=== PATIENT | male | born 1950 | race Caucasian/White ===

== ENCOUNTER → 2017-11-08 | Outpatient (CLI) | payer MEDICARE, OTHER ==
[~2017-11-08] MED LIST: ALB6.8IN INH; AMLO10TA PO; AMLO5TAB2 PO; ASPI-266 PO; CLOP75TA28 PO; HCTZ12.5T PO; ISOS30TA3 PO; LISI10TA2 PO; METO100T2 PO; NITR0.4T42 SL; OMEP20TA2 PO; ORETIC PO; SIMV40TA4 PO
--- NOTE | 2017-11-08 09:48 | Diagnostic Imaging Report ---
PATIENT HISTORY: CHRONIC KIDNEY DISEASE. TECHNIQUE: Grayscale and Doppler ultrasound performed of the bilateral kidneys and renal arteries. COMPARISON: None. FINDINGS: The right kidney measures 8.9 cm in length. There is mild renal cortical thinning. There is a focal prominence of hypoechoic cortex at the anterior right kidney measuring 3.7 x 2.2 x 2.4 cm. No hydronephrosis is seen. The left kidney measures 10.3 cm in length, with no hydronephrosis as well. There is a small 9 mm cyst at the inferior left kidney. No free fluid is seen. The right main renal artery is obscured by bowel. The resistive indices of the right kidney range from 0.64 to 0.67. The mid abdominal aorta is mildly large, measuring 4.1 x 4.1 cm. Velocity in the aorta is 76.6 cm/s. The left main renal artery measures 109 cm/s proximally, 148 cm/s mid-, and 51 cm/s distally. The renal artery aortic ratio is 1.4, 1.9, and 0.7 respectively. Resistive indices in the left kidney arcuates range from 0.61 to 0.67. IMPRESSION: 1. The right main renal artery is not seen. No significant stenosis is seen in the left main renal artery. 2. Focal prominence of the hypoechoic cortex at the anterior right kidney. This may represent a normal lobulation, however a focal mass is not excluded. 3. Aneurysmal dilatation of the mid abdominal aorta, measuring 4.1 cm. Dictated by: Dictated on workstation # [id number]
--- NOTE | 2017-11-08 11:26 | Diagnostic Imaging Report ---
INDICATION: Renal failure EXAM: Bladder ultrasound FINDINGS: Prevoid bladder urinary bladder volume was 110 mL. The post void urinary bladder volume was 6 mL. Urinary bladder wall appears normal. IMPRESSION: Unremarkable urinary bladder ultrasound. Dictated by: Dictated on workstation # [id number]
== END ==
LOC: RAD 07:52
PROVIDERS: ATTEND Internal Medicine Nephrology
DX: I71.4 Abdominal aortic aneurysm, without rupture (principal); N18.3 Chronic kidney disease, stage 3 (moderate)
CPT/HCPCS: 76857; 93975

== ENCOUNTER → 2019-01-14 | Outpatient (CLI) | payer MEDICARE, OTHER ==
--- NOTE | 2019-01-14 14:55 | Diagnostic Imaging Report ---
EXAMINATION: Aortic sonogram. HISTORY: Abdominal aortic aneurysm. FINDINGS: No comparison available. The proximal aorta is obscured by bowel gas. The mid aorta is normal in caliber measuring 2.1 x 2.5 cm. Distally, there is an abdominal aortic aneurysm which measures at least 4.8 x 4.9 cm. There is a moderate amount of mural thrombus. The iliac arteries are not well seen due to bowel gas. IMPRESSION: 1. Large abdominal aortic aneurysm measuring up to 4.9 cm. Dictated by: Dictated on workstation # [id number]
== END ==
LOC: RAD 07:35
PROVIDERS: ATTEND Internal Medicine Cardiovascular Disease
DX: I71.4 Abdominal aortic aneurysm, without rupture (principal)
CPT/HCPCS: 76775

== ENCOUNTER 2023-03-11 10:31 | Emergency (ER) | payer MEDICARE, OTHER ==
[~2023-03-11] VITALS: Ht 175.3 cm; Wt 90.7 kg
[2023-03-11 11:17] LABS: BASOPHILS # (AUTO) 0.1 10^3/uL (0.0-0.1); BASOPHILS % (AUTO) 1 % (0-10); EOSINOPHILS # (AUTO) 0.1 10^3/uL (0.0-0.3); EOSINOPHILS % (AUTO) 1 % (0-10); HEMATOCRIT 41 % (40-54); HEMOGLOBIN 13.1 g/dL (13.3-17.7); LYMPHOCYTES # (AUTO) 1.5 10^3/uL (1.0-4.0); LYMPHOCYTES % (AUTO) 11 % (12-44); MEAN CORPUSCULAR HEMOGLOBIN 30 pg (25-34); MEAN CORPUSCULAR HGB CONC 32 g/dL (32-36); MEAN CORPUSCULAR VOLUME 93 fL (80-99); MEAN PLATELET VOLUME 9.8 fL (9.0-12.2); MONOCYTES # (AUTO) 0.6 10^3/uL (0.0-1.0); MONOCYTES % (AUTO) 5 % (0-12); NEUTROPHILS # (AUTO) 10.8 10^3/uL (1.8-7.8); NEUTROPHILS % (AUTO) 82 % (42-75); PLATELET COUNT 400 10^3/uL (130-400); WHITE BLOOD COUNT 13.2 10^3/uL (4.3-11.0)
[2023-03-11 11:29] LABS: ALBUMIN 4.1 GM/DL (3.2-4.5); CHLORIDE 106 MMOL/L (98-107); POTASSIUM 5.3 MMOL/L (3.6-5.0); SODIUM 137 MMOL/L (135-145)
--- NOTE | 2023-03-11 11:30 | ED Abdominal Pain ---
General Chief Complaint: Chest Pain Stated Complaint: ABD PAIN/DIZZY Nursing Triage Note: PT TO RM 7 W C/O EPIGASTRIC PAIN SX 0000, PAIN IMPROVED AROUND [id number] THIS AM, HOWEVER, STILL PRESENT AT THIS TIME. PT A&OX4. Source of Information: Patient Exam Limitations: No Limitations History of Present Illness Date Seen by Provider: Mar 11, 2023 Time Seen by Provider: 11:00 Initial Comments 72-year-old male presents to the ER with complaint of mid upper abdominal pain starting at midnight last night. He reports that the pain was constant for 6 to 7 hours, it let up at 6 AM, but has been fluctuating intermittently since then. He reports the pain is minimal at this time. He denies radiation of the pain. He reports occasional dizziness, describes the dizziness as nausea. Denies lightheadedness or vertigo. Denies sweating with the pain. He denies fever, chest pain, shortness of air, vomiting, diarrhea, dysuria. Last bowel movement was this morning. He has had 2 previous MIs with stent placement. Patient was found to be hypertensive, reports that he took his medications this morning. He denies any previous abdominal surgeries. Allergies and Home Medications Allergies Coded Allergies: No Known Drug Allergies (Unverified , 04/21/14) Patient Home Medication List Home Medication List Reviewed: Yes Albuterol (Rx-Proventil) 17 Gm Aers, 1-2 PUFF INH PRN PRN for SHORTNESS OF BREATH, (Reported) Entered as Reported by: KIMBERLEY EUCEDA on 05/04/14 1018 Amlodipine Besylate (Amlodipine Besylate) 5 Mg Tablet, 10 MG PO DAILY, (Reported) Entered as Reported by: MARY CROWE on 05/05/14 1205 Aspirin (Aspirin Ec Low Dose) 81 Mg Tablet.dr, 81 MG PO DAILY, (Reported) Entered as Reported by: KIMBERLEY EUCEDA on 05/04/14 1018 Clopidogrel Bisulfate (Clopidogrel) 75 Mg Tablet, 75 MG PO DAILY, (Reported) Entered as Reported by: KIMBERLEY EUCEDA on 05/04/14 1018 Hydrochlorothiazide (Hctz) 12.5 Mg Cap, 12.5 MG PO DAILY, (Reported) Entered as Reported by: MARY CROWE on 05/05/14 1205 Isosorbide Mononitrate (Isosorbide Mononitrate 30 Mg) 30 Mg Tab.sr.24h, 30 MG PO DAILY, (Reported) Entered as Reported by: KIMBERLEY EUCEDA on 05/04/14 1018 Lisinopril (Lisinopril) 10 Mg Tablet, 10 MG PO DAILY, (Reported) Entered as Reported by: KIMBERLEY EUCEDA on 05/04/14 1018 Metoprolol Tartrate (Metoprolol Tartrate) 100 Mg Tablet, 100 MG PO BID, (Reported) Entered as Reported by: KIMBERLEY EUCEDA on 05/04/14 1018 Nitroglycerin (Nitroglycerin) 0.4 Mg Tab.subl, 0.4 MG SL PRN PRN for CHEST PAIN, (Reported) Entered as Reported by: KIMBERLEY EUCEDA on 05/04/14 1018 Omeprazole (Omeprazole) 20 Mg Tablet.dr, 20 MG PO BID, (Reported) Entered as Reported by: KIMBERLEY EUCEDA on 05/04/14 1018 Simvastatin (Simvastatin) 40 Mg Tablet, 40 MG PO HS, (Reported) Entered as Reported by: KIMBERLEY EUCEDA on 05/04/14 1018 Review of Systems Review of Systems Constitutional: see HPI Past Wbcnajy-Hhvazi-Civvue Hx Patient Social History Tobacco Use?: Yes Tobacco type used: Cigarettes Smoking Status: Current Everyday Smoker Use of E-Cig and/or Vaping dev: No Substance use?: No Alcohol Use?: No Immunizations Up To Date Tetanus Booster (TDap): Less than 5yrs Past Medical History Surgery/Hospitalization HX: STROKE, [place] x2, CARDIAC STENTS X5 Coronary Stent Stroke Reproductive Disorders: No Adverse Reaction/Blood Tranf: No Family Medical History Cardiovascular disease 19 FATHER 19 MOTHER Coronary thrombosis 19 FATHER 19 MOTHER Physical Exam Vital Signs Vital Signs - First Documented 03/11/23 11:00 Temp 36.1 Pulse 88 Resp 20 B/P (MAP) 195/118 (143) Pulse Ox 98 O2 Delivery Room Air Capillary Refill : Less Than 3 Seconds Height/Weight/BMI Height: 5'9.00" Weight: 200lbs. oz. 90.393415wl; 29.00 BMI Method: General Appearance: WD/WN, no apparent distress HEENT: PERRL/EOMI, normal ENT inspection, TMs normal Neck: full range of motion, supple, normal inspection Respiratory: lungs clear, normal breath sounds, no respiratory distress, no accessory muscle use Cardiovascular: regular rate, rhythm Gastrointestinal: normal bowel sounds, soft, guarding (Right lower and left lower quadrant), tenderness (Mid epigastric, right lower, left lower quadrant) Extremities: normal range of motion, non-tender, normal inspection, no pedal edema, no calf tenderness, other (Pulses equal upper and lower extremities) Neurologic/Psychiatric: alert, normal mood/affect Skin: normal color, warm/dry Progress/Results/Core Measures Results/Orders Lab Results Laboratory Tests Test 03/11/23 11:06 03/11/23 13:17 Range/Units White Blood Count 13.2 H 4.3-11.0 10^3/uL Red Blood Count 4.43 4.30-5.52 10^6/uL Hemoglobin 13.1 L 13.3-17.7 g/dL Hematocrit 41 40-54 % Mean Corpuscular Volume 93 80-99 fL Mean Corpuscular Hemoglobin 30 25-34 pg Mean Corpuscular Hemoglobin Concent 32 32-36 g/dL Red Cell Distribution Width 16.3 H 10.0-14.5 % Platelet Count 400 130-400 10^3/uL Mean Platelet Volume 9.8 9.0-12.2 fL Immature Granulocyte % (Auto) 1 % Neutrophils (%) (Auto) 82 H 42-75 % Lymphocytes (%) (Auto) 11 L 12-44 % Monocytes (%) (Auto) 5 0-12 % Eosinophils (%) (Auto) 1 0-10 % Basophils (%) (Auto) 1 0-10 % Neutrophils # (Auto) 10.8 H 1.8-7.8 10^3/uL Lymphocytes # (Auto) 1.5 1.0-4.0 10^3/uL Monocytes # (Auto) 0.6 0.0-1.0 10^3/uL Eosinophils # (Auto) 0.1 0.0-0.3 10^3/uL Basophils # (Auto) 0.1 0.0-0.1 10^3/uL Immature Granulocyte # (Auto) 0.1 0.0-0.1 10^3/uL Prothrombin Time 13.5 12.2-14.7 SEC INR Comment 1.0 0.8-1.4 Activated Partial Thromboplast Time 37 H 24-35 SEC Sodium Level 137 135-145 MMOL/L Potassium Level 5.3 H 3.6-5.0 MMOL/L Chloride Level 106 98-107 MMOL/L Carbon Dioxide Level 20 L 21-32 MMOL/L Anion Gap 11 5-14 MMOL/L Blood Urea Nitrogen 33 H 7-18 MG/DL Creatinine 2.54 H 0.60-1.30 MG/DL Estimat Glomerular Filtration Rate 26 BUN/Creatinine Ratio 13 Glucose Level 146 H 70-105 MG/DL Calcium Level 10.5 H 8.5-10.1 MG/DL Corrected Calcium 10.4 H 8.5-10.1 MG/DL Magnesium Level 1.9 1.6-2.4 MG/DL Total Bilirubin 0.4 0.1-1.0 MG/DL Aspartate Amino Transf (AST/SGOT) 12 5-34 U/L Alanine Aminotransferase (ALT/SGPT) 14 0-55 U/L Alkaline Phosphatase 93 40-136 U/L Troponin I < 0.028 <0.028 NG/ML Total Protein 7.6 6.4-8.2 GM/DL Albumin 4.1 3.2-4.5 GM/DL Lipase 62 8-78 U/L Urine Color YELLOW Urine Clarity CLEAR Urine pH 6.0 5-9 Urine Specific [place] 1.015 L 1.016-1.022 Urine Protein 2+ H NEGATIVE Urine Glucose (UA) NEGATIVE NEGATIVE Urine Ketones NEGATIVE NEGATIVE Urine Nitrite NEGATIVE NEGATIVE Urine Bilirubin NEGATIVE NEGATIVE Urine Urobilinogen 0.2 < = 1.0 MG/DL Urine Leukocyte Esterase NEGATIVE NEGATIVE Urine RBC (Auto) NEGATIVE NEGATIVE Urine RBC 0-2 /HPF Urine WBC 0-2 /HPF Urine Squamous Epithelial Cells 2-5 /HPF Urine Crystals NONE /LPF Urine Bacteria NEGATIVE /HPF Urine Casts NONE /LPF Urine Mucus NEGATIVE /LPF Urine Culture Indicated NO My Orders Orders - MINAL DOSS [employer] Ekg Tracing (03/11/23 11:04) Cbc And Automated Diff (03/11/23 11:04) Magnesium (03/11/23 11:04) Chest 1 View, Ap/Pa Only (03/11/23 11:04) Comprehensive Metabolic Panel (03/11/23 11:04) Protime With Inr (03/11/23 11:04) Partial Thromboplastin Time (03/11/23 11:04) Monitor-Rhythm Ecg Trace Only (03/11/23 11:04) Ed Iv/Invasive Line Start (03/11/23 11:04) Lipase (03/11/23 11:04) Troponin I [place] (03/11/23 11:04) Lidocaine 2% Viscous 15 Ml (Xylocaine Vi (03/11/23 11:45) Antacid Suspension (Antacid Suspension (03/11/23 11:45) Ondansetron Injection (Ondansetron Inj (03/11/23 11:45) Ct Abdomen/Pelvis Wo (03/11/23 11:45) Ns Iv 500 Ml (Ns Iv 500 Ml) (03/11/23 12:00) Ua Culture If Indicated (03/11/23 13:07) Medications Given in ED Current Medications Medications Dose Ordered Sig/Marcus Route Start Time Stop Time Status Last Admin Dose Admin Al Hydrox/Mg Hydrox/Simethicone 30 ml ONCE ONCE PO 03/11/23 11:45 03/11/23 11:46 DC 03/11/23 11:43 30 ML Lidocaine HCl 15 ml ONCE ONCE PO 03/11/23 11:45 03/11/23 11:46 DC 03/11/23 11:43 15 ML Ondansetron HCl 4 mg ONCE ONCE IVP 03/11/23 11:45 03/11/23 11:46 DC 03/11/23 11:43 4 MG Sodium Chloride 500 ml @ 0 mls/hr Q0M ONCE IV 03/11/23 12:00 03/11/23 12:01 DC 03/11/23 12:07 0 MLS/HR Vital Signs/I&O 03/11/23 03/11/23 11:00 15:14 Temp 36.1 Pulse 88 78 Resp 20 18 B/P (MAP) 195/118 (143) 120/92 Pulse Ox 98 96 O2 Delivery Room Air Room Air Blood Pressure Mean: 143 Progress Progress Note : Progress Note Patient seen and evaluated, resting comfortably in bed, no acute distress. Based on exam and symptoms, differential diagnosis includes but is not limited to gastritis, cholecystitis, IA, aortic dissection. Work-up initiated including CBC, CMP, coags, troponin, magnesium, lipase, EKG, chest x-ray. Blood pressure obtained on both arms. Blood pressure improved, similar on both sides, systolic between 130 and 140. 1153 Labs and chest x-ray reviewed. Chest x-ray shows spiculated right upper lung mass, highly suspicious for neoplasm. CBC shows slightly elevated WBC 13.2, neutrophil percentage slightly elevated 82. Hemoglobin slightly decreased 13.1. Hematocrit normal. CMP shows slightly elevated potassium 5.3. Slightly decreased CO2 20. BUN elevated 33, creatinine elevated 2.54, GFR decreased 26. Glucose 146. Calcium slightly elevated 10.5. Troponin negative. Lipase normal. Coags show slightly elevated APTT 37. I called and spoke with patient's primary care office. They report that his last kidney function labs were drawn in June, at that time creatinine was 2.0, GFR was 34, BUN was 36. 500 mL bolus of IV fluids ordered for possible dehydration as evidenced by slightly elevated potassium and calcium, and change in kidney function. Elevated white count may also be related to dehydration, but CT abdomen pelvis without contrast ordered due to lower abdominal tenderness and guarding. 1232 CT reviewed. Large infrarenal abdominal aortic aneurysm measuring 7.2 x 6 point 8 cm at maximum dimension, extends approximately 9.5 cm in length. There is no periaortic hyperdensity to suggest aortic rupture/hemorrhage. There is moderate diffuse calcified aortic and arterial atherosclerosis. Also shows hepatic stenosis, colonic diverticulosis without diverticulitis, moderate asymmetric atrophy of the right kidney. Also noted are multiple hypodense renal cyst bilaterally and a benign-appearing cyst in the liver. I tried calling [facility] in [place] for cardiac thoracic surgeon consult, they are at capacity. I called [facility] in [place], waiting for consult from cardiothoracic surgery. Results discussed with patient. Patient reports improvement of pain after GI cocktail. 1408 I called [facility] again to check on the status of the consult. They report that the surgeon is currently in surgery, so it might still be a little while before he can return the phone call. I have updated patient. Urinalysis reviewed. It shows 2+ protein, negative for infection. 1443 [facility] in [place] returned the phone call. Dr. Justine Guerra, cardiothoracic surgeon, states that patient's aneurysm is chronic, and that he would like to see the patient in the office this . He said the patient can call the office to schedule the follow-up appointment. I called patient's primary care provider, Dr. Worrell, to relay findings from today. I informed him of patient's decreased kidney function and elevated potassium. I also informed him of the mass on patient's x-ray and the aneurysm. He would like me to order outpatient lab orders for this Saturday to evaluate his kidney function and potassium. His office will call the patient to schedule follow-up appointment for next week. Patient states that pain has not returned after GI cocktail. Pain possibly related to gastritis, although it could also be related to his aortic aneurysm. Patient instructed to try Tums, Maalox, or Mylanta. Plan of care discussed with patient. Patient verbalized understanding. All questions sought and answered. Strict return precautions provided including precautions regarding aortic dissection. Discharge instructions provided. Initial ECG Impression Date: Mar 11, 2023 Initial ECG Impression Time: 11:13 Initial ECG Rate: 89 Initial ECG Rhythm: Normal Sinus Initial ECG Intervals: QRS (112) Initial ECG Impression: Nonspecific Changes Initial ECG Comparisson: No Previous ECG Available Comment No Q waves, ST elevation, or T wave inversion. QRS slightly elevated 112. Diagnostic Imaging Diagonstic Imaging: Xray Plain Films/CT/US/NM/MRI: chest Comments [facility] [place], [place] NAME: [facility] REC#: [id number] PT STATUS: REG ER : 1950 PHYSICIAN: MINAL DOSS APRN ADMIT DATE: 03/11/23/ER Draft Date of Exam:03/11/23 CHEST 1 VIEW, AP/PA ONLY INDICATION: Right-sided chest pain. EXAMINATION: Portable chest at 11:31 a.m. FINDINGS: There is a 5.9 cm mass in the right upper medial chest adjacent to the mediastinum. There are postop changes from CABG surgery. There are no infiltrates, effusions or pneumothoraces. IMPRESSION: Spiculated right upper lung mass, highly suspicious for neoplasm. Dictated on workstation # [id number] Dict: 03/11/23 1127 Trans: 03/11/23 1133 AS6 [id number] Interpreted by: URIEL HUANG MD Electronically signed by: Diagonstic Imaging: CT Plain Films/CT/US/NM/MRI: abdomen, pelvis Comments [facility] [place], [place] NAME: [facility]QU[facility] REC#: [id number] PT STATUS: REG ER : 1950 PHYSICIAN: MINAL DOSS APRN ADMIT DATE: 03/11/23/ER Draft Date of Exam:03/11/23 CT ABDOMEN/PELVIS WO PROCEDURE: CT abdomen and pelvis without contrast. TECHNIQUE: Multiple contiguous axial images were obtained through the abdomen and pelvis without the use of intravenous contrast. Auto Exposure Controls were utilized during the CT exam to meet ALARA standards for radiation dose reduction. INDICATION: Epigastric pain. History of abdominal aortic aneurysm. COMPARISON: Sonogram dated 01/14/2019. FINDINGS: Included portions of the lung bases are clear. CT ABDOMEN: A large infrarenal abdominal aortic aneurysm is identified. It measures approximately 7.2 x 6.8 cm in maximal axial dimension and extends approximately 9.5 cm in length. There is no periaortic hyperdensity to suggest aortic rupture/hemorrhage. There is moderate diffuse calcified aortic and arterial atherosclerosis. The liver is diffusely hypodense on this noncontrast study. A benign-appearing cyst is noted within the left lobe. Note is also made of moderate asymmetric atrophy of the right kidney. Multiple hypodense renal cysts are identified bilaterally as well. Otherwise, the liver, kidneys, adrenal glands, spleen, and pancreas have an unremarkable noncontrast CT appearance. A normal appendix is identified. The small bowel loops are nondilated. There is colonic diverticulosis but no CT evidence of acute diverticulitis. There is no loculated fluid collection, free fluid, or free air within the abdomen. No abnormal mesenteric or retroperitoneal adenopathy is seen. The osseous structures show no acute abnormalities. CT PELVIS: The urinary bladder is unopacified. No calculi are seen within the urinary bladder. There is no loculated fluid collection, free fluid, or free air within the pelvis. No abnormal lymph nodes are seen. The osseous structures show no acute abnormalities. IMPRESSION: 1. Large infrarenal abdominal aortic aneurysm as described above. Surgical consultation is advised. 2. Hepatic steatosis. 3. Colonic diverticulosis but no CT evidence of acute diverticulitis. 4. Moderate asymmetric atrophy of the right kidney. 5. The report was called and faxed to Minal Doss APRN, by [email or web address]@12:18 PM. Dictated on workstation # [id number] Dict: 03/11/23 1206 Trans: 03/11/23 [facility]9 [id number] Interpreted by: ARMIDA OSORIO MD Electronically signed by: Departure Impression Primary Impression: Gastritis Additional Impressions: Lung mass Abdominal aortic aneurysm Chronic kidney disease Hyperkalemia Disposition: HOME, SELF-CARE Condition: Stable Departure-Patient Inst. Decision time for Depature: 14:55 Referrals: GM WORRELL MD (PCP/Family) Primary Care Physician Patient Instructions: Abdominal aortic aneurysm Add. Discharge Instructions: Call Dr. Justine Guerra today at [phone] to schedule a follow-up appointment for this . Let the office know that Dr. Guerra stated that he wants to see you this . Return this Saturday at outpatient registration to have your labs drawn. Take the order form with you. Follow-up with Dr. Worrell regarding your decreased kidney function, elevated potassium, and mass on your chest x-ray. Dr. Worrell's office will call you to schedule a follow-up appointment. You may try Tums, Maalox, or Mylanta for this pain because it may be related to gastritis. Avoid foods that trigger the pain. Avoid spicy foods, citric foods, acidic foods, caffeine, alcohol, tobacco. Sit up for 30 minutes after eating. Return for severe abdominal or chest pain, pain radiating to your back, ripping pain in your abdomen or chest, shortness of air, passing out, or any other new, concerning, or worsening symptoms. All discharge instructions reviewed with patient and/or family. Voiced under standing. Copy Copies To 1: GM WORRELL MD, BRITTANY R APRN Mar 11, 2023 11:30
[2023-03-11 11:31] LABS: CALCIUM 10.5 MG/DL (8.5-10.1)
[2023-03-11 11:32] LABS: GLUCOSE 146 MG/DL (70-105); TOTAL PROTEIN 7.6 GM/DL (6.4-8.2)
[2023-03-11 11:33] LABS: BILIRUBIN,TOTAL 0.4 MG/DL (0.1-1.0); CARBON DIOXIDE 20 MMOL/L (21-32)
--- NOTE | 2023-03-11 11:33 | Diagnostic Imaging Report ---
INDICATION: Right-sided chest pain. EXAMINATION: Portable chest at 11:31 a.m. FINDINGS: There is a 5.9 cm mass in the right upper medial chest adjacent to the mediastinum. There are postop changes from CABG surgery. There are no infiltrates, effusions or pneumothoraces. IMPRESSION: Spiculated right upper lung mass, highly suspicious for neoplasm. Dictated by: Dictated on workstation # [id number]
[2023-03-11 11:35] LABS: ALKALINE PHOSPHATASE 93 U/L (40-136); CREATININE SERUM 2.54 MG/DL (0.60-1.30); GFR ESTIMATED 26; PROTHROMBIN TIME PATIENT 13.5 SEC (12.2-14.7)
[2023-03-11 11:36] LABS: BUN/CREATININE RATIO 13
[2023-03-11 11:38] LABS: ALANINE AMINOTRANSFERASE 14 U/L (0-55); MAGNESIUM 1.9 MG/DL (1.6-2.4)
[2023-03-11 11:39] LABS: LIPASE 62 U/L (8-78)
[2023-03-11] MEDS ORDERED: LIDOCAINE 2% VISCOUS 15 ML UDC PO ONE (11:45)
[2023-03-11] MEDS ORDERED: ONDANSETRON INJECTION 4 MG/2 ML (SDV) IVP ONE (11:45)
[2023-03-11] MEDS ORDERED: ANTACID SUSPENSION 30 ML UDC PO ONE (11:45)
[2023-03-11] MEDS ORDERED: NS IV 500 ML 500 ML IV ONE (12:00)
--- NOTE | 2023-03-11 12:19 | Diagnostic Imaging Report ---
PROCEDURE: CT abdomen and pelvis without contrast. TECHNIQUE: Multiple contiguous axial images were obtained through the abdomen and pelvis without the use of intravenous contrast. Auto Exposure Controls were utilized during the CT exam to meet ALARA standards for radiation dose reduction. INDICATION: Epigastric pain. History of abdominal aortic aneurysm. COMPARISON: Sonogram dated 01/14/2019. FINDINGS: Included portions of the lung bases are clear. CT ABDOMEN: A large infrarenal abdominal aortic aneurysm is identified. It measures approximately 7.2 x 6.8 cm in maximal axial dimension and extends approximately 9.5 cm in length. There is no periaortic hyperdensity to suggest aortic rupture/hemorrhage. There is moderate diffuse calcified aortic and arterial atherosclerosis. The liver is diffusely hypodense on this noncontrast study. A benign-appearing cyst is noted within the left lobe. Note is also made of moderate asymmetric atrophy of the right kidney. Multiple hypodense renal cysts are identified bilaterally as well. Otherwise, the liver, kidneys, adrenal glands, spleen, and pancreas have an unremarkable noncontrast CT appearance. A normal appendix is identified. The small bowel loops are nondilated. There is colonic diverticulosis but no CT evidence of acute diverticulitis. There is no loculated fluid collection, free fluid, or free air within the abdomen. No abnormal mesenteric or retroperitoneal adenopathy is seen. The osseous structures show no acute abnormalities. CT PELVIS: The urinary bladder is unopacified. No calculi are seen within the urinary bladder. There is no loculated fluid collection, free fluid, or free air within the pelvis. No abnormal lymph nodes are seen. The osseous structures show no acute abnormalities. IMPRESSION: 1. Large infrarenal abdominal aortic aneurysm as described above. Surgical consultation is advised. 2. Hepatic steatosis. 3. Colonic diverticulosis but no CT evidence of acute diverticulitis. 4. Moderate asymmetric atrophy of the right kidney. 5. The report was called and faxed to Minal Newton APRN, by [email or web address]@12:18 PM. Dictated by: Dictated on workstation # [id number]
[2023-03-11 13:38] LABS: BILIRUBIN,URINE NEGATIVE (NEGATIVE); CLARITY,URINE CLEAR; COLOR,URINE YELLOW; GLUCOSE, URINE (UA) NEGATIVE (NEGATIVE); KETONES,URINE NEGATIVE (NEGATIVE); LEUKOCYTE ESTERASE ,URINE NEGATIVE (NEGATIVE); NITRITE,URINE NEGATIVE (NEGATIVE); PROTEIN,URINE 2+ (NEGATIVE); RBC,URINE 0-2 /HPF; WBC,URINE 0-2 /HPF
[2023-03-11 13:39] LABS: BACTERIA,URINE NEGATIVE /HPF
[2023-03-11 15:14] VITALS: BP 120/92
== END 2023-03-11 15:14 | disposition home or self-care (01) ==
LOC: EDUNIT# 10:31 → ER 10:32
DX: K29.70 Gastritis, unspecified, without bleeding (principal); I71.40 Abdominal aortic aneurysm, without rupture, unspecified; E87.5 Hyperkalemia; I12.9 Hypertensive chronic kidney disease with stage 1 through stage 4 chronic kidney disease, or unspecified chronic kidney disease; N18.9 Chronic kidney disease, unspecified; R91.8 Other nonspecific abnormal finding of lung field; F17.210 Nicotine dependence, cigarettes, uncomplicated; Z79.899 Other long term (current) drug therapy
CPT/HCPCS: 36415; 71045; 74176; 80053; 81000; 83690; 83735; 84484; 85025; 85610; 85730; 93041; 96361; 96374

== ENCOUNTER → 2023-03-13 | Outpatient (CLI) | payer MEDICARE, OTHER ==
[2023-03-13 08:50] LABS: CALCIUM 10.2 MG/DL (8.5-10.1); CREATININE SERUM 2.49 MG/DL (0.60-1.30); POTASSIUM 4.5 MMOL/L (3.6-5.0)
== END ==
LOC: LAB 08:25
PROVIDERS: ATTEND Nurse Practitioner
DX: E87.5 Hyperkalemia (principal); N18.9 Chronic kidney disease, unspecified
CPT/HCPCS: 36415; 80048

== ENCOUNTER → 2023-03-26 | Outpatient (CLI) | payer MEDICARE, OTHER ==
--- NOTE | 2023-03-26 19:32 | Diagnostic Imaging Report ---
CLINICAL INDICATION: Patient with right lung mass. EXAM: Chest x-ray PA and lateral views. COMPARISON: Chest x-ray dated 03/11/2023. FINDINGS: Again seen right upper lobe/superior perihilar mass. There is stable mild atelectasis versus scarring involving the medial right lung base. There is no pleural effusion or pneumothorax. Pulmonary vasculature is within normal limits. There is cardiomegaly. There are postop change to the chest with sternotomy wires and mediastinal clips. There are degenerative spurs involving the thoracic spine. IMPRESSION: 1: Again seen right upper lobe/superior perihilar mass concerning for neoplasm. 2: Stable mild atelectasis or scarring involving the medial right lung base. Dictated by: Dictated on workstation # [id number]
== END ==
LOC: RAD 16:45
PROVIDERS: ATTEND Internal Medicine
DX: R91.8 Other nonspecific abnormal finding of lung field (principal); N18.32 Chronic kidney disease, stage 3b; I71.40 Abdominal aortic aneurysm, without rupture, unspecified
CPT/HCPCS: 71046